=== PATIENT | female | born 1990 | race Caucasian/White ===

== ENCOUNTER 2019-02-21 11:20 | Emergency (ER) | payer OTHER ==
--- NOTE | 2019-02-21 12:57 | EDPHYS ---
Physician Documentation [facility] Name: Allyn Naik Age: 28 yrs Sex: Female : 1990 Arrival Date: 02/21/2019 Time: 11:23 Bed 9 Private MD: ED Physician Matheus Cornejo HPI: 02/21 13:32 This 28 yrs old Female presents to ER via Ambulatory with complaints of kb Needle Stick Exposure. 13:33 The patient has a laceration related to: doing yard work, stepped on hypodermic needle, kb occurred at home, outdoors, and The type of wound is a puncture. The injury was accidental. The laceration(s) is(are) located on the heel of right foot. Onset: The symptoms/episode began/occurred this morning. Associated signs and symptoms: The patient has no apparent associated signs or symptoms. The patient has not experienced similar symptoms in the past. The patient has not recently seen a physician. Pt reports she stepped on a hypodermic needle that was in her yard while doing yard work. Does not know how it got there so she came in to have precautionary blood work done. . 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 - Social history:: Smoking status: Patient/guardian denies using tobacco. - Ebola Screening: : No symptoms or risks identified at this time. ROS: 13:32 Constitutional: Negative for fever, chills, and weight loss, Cardiovascular: Negative kb for chest pain, palpitations, and edema, Respiratory: Negative for shortness of breath, cough, wheezing, and pleuritic chest pain, Abdomen/GI: Negative for abdominal pain, nausea, vomiting, diarrhea, and constipation, Back: Negative for injury and pain, : Negative for injury, bleeding, discharge, and swelling, MS/Extremity: Negative for injury and deformity, Neuro: Negative for headache, weakness, numbness, tingling, and seizure. 13:32 Skin: Positive for puncture, of the heel of right foot. Exam: 13:31 Constitutional: This is a well developed, well nourished patient who is awake, alert, kb and in no acute distress. Head/Face: Normocephalic, atraumatic. Neck: Trachea midline, no thyromegaly or masses palpated, and no cervical lymphadenopathy. Supple, full range of motion without nuchal rigidity, or vertebral point tenderness. No Meningismus. Chest/axilla: Normal chest wall appearance and motion. Nontender with no deformity. No lesions are appreciated. Cardiovascular: Regular rate and rhythm with a normal S1 and S2. No gallops, murmurs, or rubs. Normal PMI, no JVD. No pulse deficits. Respiratory: Lungs have equal breath sounds bilaterally, clear to auscultation and percussion. No rales, rhonchi or wheezes noted. No increased work of breathing, no retractions or nasal flaring. Abdomen/GI: Soft, non-tender, with normal bowel sounds. No distension or tympany. No guarding or rebound. No evidence of tenderness throughout. MS/ Extremity: Pulses equal, no cyanosis. Neurovascular intact. Full, normal range of motion. Neuro: Awake and alert, GCS 15, oriented to person, place, time, and situation. Cranial nerves II-XII grossly intact. Motor strength 5/5 in all extremities. Sensory grossly intact. Cerebellar exam normal. Normal gait. 13:31 Skin: injury, puncture(s), that are superficial, of the heel of right foot. Vital Signs: 11:50 BP 109 / 77; Pulse 97; Resp 16 S; Temp 99.3(TE); Pulse Ox 100% on R/A; Weight 74.84 kg aa5 (R); Height 5 ft. 9 in. (175.26 cm) (R); Pain 0/10; 11:50 Body Mass Index 24.37 (74.84 kg, 175.26 cm) aa5 MDM: 12:33 Patient medically screened. kb 13:32 Data reviewed: vital signs, nurses notes. Data interpreted: Pulse oximetry: on room air kb is 100 %. Interpretation: normal. 13:33 Counseling: I had a detailed discussion with the patient and/or guardian regarding: the kb historical points, exam findings, and any diagnostic results supporting the discharge/admit diagnosis, the need for outpatient follow up, a family practitioner, to return to the emergency department if symptoms worsen or persist or if there are any questions or concerns that arise at home. 13:37 ED course: Offered prophylactic treatment. Pt declined. kb 02/21 12:42 Order name: Hepatitis Panel kb 02/21 13:18 Order name: HIV AG/AB SCREEN [facility] Administered Medications: 13:32 Drug: KeFLEX 500 mg Route: PO; dm5 Disposition: 02/21/19 12:56 Discharged to Home. Impression: Contact with hypodermic needle, Puncture wound without foreign body of foot. - Condition is Stable. - Discharge Instructions: Puncture Wound, Lrna-wj-Glit, Needlestick Injury, Hsfl-bi-Vilh. - Prescriptions for Keflex 500 mg Oral Capsule - take 1 capsule by ORAL route every 8 hours for 7 days; 21 capsule. - Medication Reconciliation Form, Thank You Letter, Antibiotic Education, Prescription Opioid Use form. - Follow up: Emergency Department; When: As needed; Reason: Worsening of condition. Follow up: Private Physician; When: 2 - 3 days; Reason: Recheck today's complaints, Continuance of care, Re-evaluation by your physician. Addendum: 02/22/2019 18:18 Co-signature as Attending Physician, Matheus Cornejo MD. g s Signatures: Dispatcher [employer] [facility] Ivon Wharton, FIRE ALARM REPAIRER-C FIRE ALARM REPAIRER-Maritza Pretty, RN RN dm5 Ashleigh Last, RN RN aa5 Matheus Cornejo MD MD Corrections: (The following items were deleted from the chart) 02/21 13:18 12:48 HIV (1 ordered. [facility] 13:36 12:56 02/21/2019 12:56 Discharged to Home. Impression: Contact with hypodermic needle; dm5 Puncture wound without foreign body of foot. Condition is Stable. Forms are Medication Reconciliation Form, Thank You Letter, Antibiotic Education, Prescription Opioid Use. Follow up: Emergency Department; When: As needed; Reason: Worsening of condition. Follow up: Private Physician; When: 2 - 3 days; Reason: Recheck today's complaints, Continuance of care, Re-evaluation by your physician. kb
--- NOTE | 2019-02-21 12:57 | ER ---
Nurse's Notes [facility] Name: Allyn Naik Age: 28 yrs Sex: Female : 1990 Arrival Date: 02/21/2019 Time: 11:23 Bed 9 Private MD: Diagnosis: Contact with hypodermic needle;Puncture wound without foreign body of foot Presentation: 02/21 11:48 Presenting complaint: Patient states: "I was walking out in the front yard and I felt aa5 something poke me and saw that it was a needle". Pt c/o puncture wound to right foot. Transition of care: patient was not received from another setting of care. Onset of symptoms was February 21, 2019. Risk Assessment: Do you want to hurt yourself or someone else? Patient reports no desire to harm self or others. Initial Sepsis Screen: Does the patient meet any 2 criteria? No. Patient's initial sepsis screen is negative. Does the patient have a suspected source of infection? No. Patient's initial sepsis screen is negative. Care prior to arrival: None. 11:48 Acuity: EDUARDO 4 aa5 11:48 Method Of Arrival: Ambulatory aa5 Triage Assessment: 11:48 General: Appears comfortable, Behavior is calm, cooperative. 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 - Social history:: Smoking status: Patient/guardian denies using tobacco. - Ebola Screening: : No symptoms or risks identified at this time. Screenin:35 Abuse screen: Denies threats or abuse. Nutritional screening: No deficits noted. aa5 Tuberculosis screening: No symptoms or risk factors identified. Fall Risk None identified. Assessment: 12:35 General: Appears comfortable, Behavior is calm, cooperative. Pain: Denies pain. Neuro: aa5 Level of Consciousness is awake, alert, obeys commands, Oriented to person, place, time, situation. Cardiovascular: Patient's skin is warm and dry. Respiratory: Airway is patent Respiratory effort is even, unlabored, Respiratory pattern is regular, symmetrical. GI: No signs and/or symptoms were reported involving the gastrointestinal system. : No signs and/or symptoms were reported regarding the genitourinary system. EENT: No signs and/or symptoms were reported regarding the EENT system. Derm: Skin is pink, warm \\T\\ dry. Puncture wound noted to right heel. Musculoskeletal: Range of motion: intact in all extremities. Vital Signs: 11:50 BP 109 / 77; Pulse 97; Resp 16 S; Temp 99.3(TE); Pulse Ox 100% on R/A; Weight 74.84 kg aa5 (R); Height 5 ft. 9 in. (175.26 cm) (R); Pain 0/10; 11:50 Body Mass Index 24.37 (74.84 kg, 175.26 cm) aa5 ED Course: 11:23 Patient arrived in ED. rg4 11:48 Triage completed. aa5 11:48 Arm band placed on. aa5 11:48 Patient has correct armband on for positive identification. aa5 12:17 Ivon Wharton FNP-C is [facility]. kb 12:17 Matheus Cornejo MD is Attending Physician. kb 12:43 Ashleigh Last, RN is Primary Nurse. aa5 13:30 No provider procedures requiring assistance completed. Patient did not have IV access aa5 during this emergency room visit. Administered Medications: 13:32 Drug: KeFLEX 500 mg Route: PO; dm5 Outcome: 12:56 Discharge ordered by . kb 13:36 Discharged to home ambulatory. dm5 13:36 Condition: good 13:36 Discharge instructions given to patient, Instructed on discharge instructions, follow up and referral plans. need for PCP Demonstrated understanding of instructions, follow-up care. 13:36 Patient left the ED. dm5 Signatures: Ivon Wharton FNP-C FNP-Ckb Markwardt, Deana, RN RN dm5 Calderon, Audri, YUE RN aa5 Sosa Cedillo rg4
[2019-02-21] MEDS ORDERED: CEPHALEXIN 250 MG CAP ONE (13:46)
[2019-02-24 14:44] LABS: HIV AG/AB 4TH GEN Non-reactive (Non-reactive)
[2019-02-25 03:19] LABS: HBsAG Nonreactive (Nonreactive); Hepatitis A IgM Antibody Nonreactive
== END 2019-02-21 13:36 | disposition home or self-care (01) ==
LOC: ER 11:20
DX: S91.331A Puncture wound without foreign body, right foot, initial encounter (principal); W46.0XXA Contact with hypodermic needle, initial encounter; Y93.H9 Activity, other involving exterior property and land maintenance, building and construction; Y92.007 Garden or yard of unspecified non-institutional (private) residence as the place of occurrence of the external cause
CPT/HCPCS: 36415; 80074; 87389; 99283